=== PATIENT | female | born 1980 | race Caucasian/White ===

== ENCOUNTER 2016-06-23 13:00 | Outpatient (CLI) | payer MEDICAID | END 2016-06-23 13:01 | disposition home or self-care (01) | DX: Z36 Encounter for antenatal screening of mother (principal) ==

== ENCOUNTER 2016-07-07 12:47 | Outpatient (CLI) | payer MEDICAID | END 2016-07-07 12:48 | disposition home or self-care (01) | DX: Z36 Encounter for antenatal screening of mother (principal); O44.02 Complete placenta previa NOS or without hemorrhage, second trimester; Z3A.26 26 weeks gestation of pregnancy ==

== ENCOUNTER 2016-09-01 09:45 | Outpatient (CLI) | payer MEDICAID ==
[2016-09-01 14:15] LABS: BASOPHILS % (AUTO) 0.4 %; EOSINOPHILS # (AUTO) 0.1 10^3/uL (0.0-0.7); EOSINOPHILS % (AUTO) 1.1 %; HCT - HEMATOCRIT 32.1 % (37.0-47.0); LYMPHOCYTES # (AUTO) 3.2 10^3/uL (1.5-3.5); LYMPHOCYTES % (AUTO) 24.3 %; MEAN CORPUSCULAR HEMOGLOBIN 27.4 pg (27.0-31.0); MEAN CORPUSCULAR HGB CONC 34.1 g/dL (32.0-36.0); MEAN CORPUSCULAR VOLUME 80.4 fL (81.0-99.0); MEAN PLATELET VOLUME 11.1 fL (7.9-10.8); MONOCYTES # (AUTO) 0.5 10^3/uL (0.0-1.0); MONOCYTES % (AUTO) 3.5 %; NEUTROPHILS # (AUTO) 9.2 10^3/uL (1.5-6.6); NEUTROPHILS % (AUTO) 70.7 %; RED BLOOD COUNT 3.99 10^6/uL (4.20-5.40); RED CELL DISTRIBUTION WIDTH 14.4 % (12.0-15.0); UNCORRECTED WHITE BLOOD COUNT 13.1 x10^3/uL; WHITE BLOOD COUNT 13.1 x10^3/uL (4.8-10.8)
[2016-09-01 14:56] LABS: ALBUMIN/GLOBULIN RATIO 0.7 (1.0-2.2); BILIRUBIN,TOTAL 0.3 mg/dL (0.2-1.0); CALCIUM 9.1 mg/dL (8.5-10.3); CREATININE 0.5 mg/dL (0.4-1.0); POTASSIUM 3.7 mmol/L (3.5-5.0); TOTAL PROTEIN 6.4 g/dL (6.7-8.2)
== END 2016-09-01 09:46 | disposition home or self-care (01) ==
LOC: LAB.N 09:45
PROVIDERS: ATTEND Nurse Practitioner Gerontology
DX: Z79.899 Other long term (current) drug therapy (principal)
CPT/HCPCS: 36415; 80053; 85025

== ENCOUNTER 2018-05-14 09:07 | Emergency (ER) | payer MEDICAID ==
--- NOTE | 2018-05-14 09:52 | ED Physician Documentation ---
History of Present Illness - Stated complaint Stated Complaint: PANIC ATTACKS - Chief complaint Chief Complaint: MHE - History obtained from History obtained from: Patient, Family - History of Present Illness Timing: How many weeks ago (2) - Additonal information Additional information: 38-year-old female with history of anxiety and panic attacks has developed acute anxiety she believes related to the fact that her daughter is leaving to go to [place] to go to school tomorrow. She has had some trouble with changes previously and develops anxiety related to this she has previously been seen by a counselor and she has not had counseling for more than 2 years. She is on BuSpar and Zoloft and has been on these medications for a number of years. She reports breathing rapidly feeling lightheaded and dizzy and having a sensation that her mouth is dry. Review of Systems Constitutional: denies: Fever Eyes: denies: Decreased vision Ears: denies: Ear pain Nose: denies: Congestion Throat: denies: Sore throat Cardiac: denies: Chest pain / pressure, Palpitations Respiratory: reports: Dyspnea. denies: Cough GI: denies: Abdominal Pain, Nausea, Vomiting : denies: Dysuria, Frequency Skin: denies: Rash Musculoskeletal: denies: Neck pain, Back pain, Extremity pain Neurologic: denies: Generalized weakness, Focal weakness, Numbness Psychiatric: reports: Anxiety PD PAST MEDICAL HISTORY - Past Medical History Cardiovascular: None, Hypertension, High cholesterol Respiratory: None Endocrine/Autoimmune: None GI: None : None HEENT: None Psych: Depression, Anxiety Musculoskeletal: None Derm: None, Psoriasis - Past Surgical History Past Surgical History: Yes General: Other - Present Medications Home Medications: Ambulatory Orders Medication Instructions Recorded Confirmed Buspirone HCl 30 mg PO DAILY 05/27/13 05/14/18 Sertraline HCl [Zoloft] 200 mg PO DAILY 05/27/13 05/14/18 Lorazepam [Ativan] 1 - 2 mg PO RTQ6H PRN #20 tablet 05/14/18 - Allergies Allergies/Adverse Reactions: Allergies Allergy/AdvReac Type Severity Reaction Status Date / Time No Known Drug Allergies Allergy Verified 05/14/18 09:14 - Social History Does the pt smoke?: Yes Smoking Status: Current every day smoker Does the pt drink ETOH?: Yes Does the pt have substance abuse?: No - Immunizations Immunizations are current?: Yes - POLST Patient has POLST: No PD ED PE NORMAL - Vitals Vital signs reviewed: Yes (tachky and hypertensive ) - General General: Alert and oriented X 3, Well developed/nourished, Other (anxious appearing female hyperventilating and teary eyed. ) - HEENT HEENT: Atraumatic, PERRL, EOMI, Pharynx benign, Other (There is mild inflamation along the right umbo) - Neck Neck: Supple, no meningeal sign, No bony TTP - Cardiac Cardiac: No murmur, Other (tachy to 100) - Respiratory Respiratory: No respiratory distress, Clear bilaterally - Abdomen Abdomen: Soft, Non tender - Back Back: No CVA TTP, No spinal TTP - Derm Derm: Normal color, Warm and dry, No rash - Extremities Extremities: No deformity, No edema - Neuro Neuro: Alert and oriented X 3, bank accountant 2-12 intact, No motor deficit, No sensory deficit, Normal speech Eye Opening: Spontaneous Motor: Obeys Commands Verbal: Oriented GCS Score: 15 - Psych Psych: Normal affect, Other (mood is anxious ) Results - Vitals Vitals: Vital Signs - 24 hr 05/14/18 05/14/18 09:09 09:28 Temperature 35.9 C L Heart Rate 122 H 102 H Respiratory 18 Rate Blood Pressure 160/81 H 143/73 H O2 Saturation 98 99 Oxygen O2 Source Room air - EKG (time done) 0922 Rate: Rate (enter#) (102) Rhythm: Sinus tachycardia Ischemia: Normal ST segments Compare to prior EKG: Old EKG unavailable Computer interpretation: Agree with computer Procedures - IVC sono (time) 0945 Bedside IVC sono: IVC measures (cm) (1.67), Euvolemia PD MEDICAL DECISION MAKING - ED course Complexity details: considered differential, d/w patient, d/w family ED course: 38-year-old female with a history of anxiety appears to be anxious today related to current events in her home life and she is administered Ativan orally. We will place her short course of Ativan she does have follow-up with her primary and I have recommended counseling. She did feel that she was dehydrated and we interrogated her inferior vena cava and found her to be euvolemic. I suspect her feeling of dehydration related to her dry mouth is from her rapid breathing but she has not depleted her volume. Departure - Departure Disposition: 01 Home, Self Care Clinical Impression: Acute anxiety Condition: Stable Instructions: ED Panic Attack, ED Stress React Follow-Up: Mirian Giordano ARNP [Primary Care Provider] - Prescriptions: Lorazepam [Ativan] 1 - 2 mg PO RTQ6H PRN #20 tablet PRN Reason: Anxiety
[2018-05-14] MEDS ORDERED: LORazepam 0.5 MG TABLET PO STA (09:57)
[2018-05-14 10:09] VITALS: BP 146/84
== END 2018-05-14 10:09 | disposition home or self-care (01) ==
LOC: ED 09:07
DX: F41.9 Anxiety disorder, unspecified (principal); R00.0 Tachycardia, unspecified; R06.4 Hyperventilation; R68.2 Dry mouth, unspecified; I10 Essential (primary) hypertension; F17.200 Nicotine dependence, unspecified, uncomplicated
CPT/HCPCS: 93005; 99283; A9270

== ENCOUNTER 2018-12-20 08:50 | Outpatient (CLI) | payer MEDICAID ==
[2018-12-20 11:59] LABS: BASOPHILS # (AUTO) 0.1 10^3/uL (0.0-0.1); BASOPHILS % (AUTO) 0.4 %; EOSINOPHILS # (AUTO) 0.4 10^3/uL (0.0-0.7); EOSINOPHILS % (AUTO) 3.5 %; LYMPHOCYTES # (AUTO) 3.4 10^3/uL (1.5-3.5); LYMPHOCYTES % (AUTO) 29.5 %; MEAN CORPUSCULAR HEMOGLOBIN 25.2 pg (27.0-31.0); MEAN CORPUSCULAR HGB CONC 30.2 g/dL (32.0-36.0); MEAN CORPUSCULAR VOLUME 83.4 fL (81.0-99.0); MEAN PLATELET VOLUME 11.9 fL (7.9-10.8); MONOCYTES # (AUTO) 0.5 10^3/uL (0.0-1.0); MONOCYTES % (AUTO) 4.2 %; NEUTROPHILS # (AUTO) 7.2 10^3/uL (1.5-6.6); NEUTROPHILS % (AUTO) 62.2 %; PLT - PLATELET COUNT 236 10^3/uL (130-450); RED BLOOD COUNT 5.55 10^6/uL (4.20-5.40); RED CELL DISTRIBUTION WIDTH 15.6 % (12.0-15.0); WHITE BLOOD COUNT 11.6 x10^3/uL (4.8-10.8)
[2018-12-20 12:11] LABS: ALBUMIN 3.7 g/dL (3.2-5.5); ALBUMIN/GLOBULIN RATIO 1.1 (1.0-2.2); ALKALINE PHOSPHATASE 86 IU/L (42-121); ALT ALANINE AMINOTRANSFERASE 17 IU/L (10-60); AST ASPARTATE AMINOTRANSFERASE 17 IU/L (10-42); BILIRUBIN,TOTAL 0.4 mg/dL (0.2-1.0); BUN - BLOOD UREA NITROGEN 11 mg/dL (6-20); CALCIUM 9.1 mg/dL (8.5-10.3); CARBON DIOXIDE - CO2 27 mmol/L (21-32); CHLORIDE 108 mmol/L (101-111); CHOL/HDL RATIO 9.4 (<4.4); CHOLESTEROL 255 mg/dL; CREATININE 0.7 mg/dL (0.4-1.0); GFR - MDRD 93 (>89); GLUCOSE 108 mg/dL (70-100); HDL CHOLESTEROL 27 mg/dL; LDL CHOLESTEROL,CALCULATED 194 mg/dL; LDL/HDL RATIO 7.2 (<4.4); SODIUM 143 mmol/L (135-145); TOTAL PROTEIN 7.2 g/dL (6.7-8.2); VLDL CHOLESTEROL 34 mg/dL
== END 2018-12-20 23:59 | disposition home or self-care (01) ==
LOC: LAB.N 08:50
PROVIDERS: ATTEND Family Medicine
DX: I10 Essential (primary) hypertension (principal); F41.9 Anxiety disorder, unspecified; Z83.49 Family history of other endocrine, nutritional and metabolic diseases
CPT/HCPCS: 36415; 80050; 80061; 83721

== ENCOUNTER 2019-01-11 13:33 | Emergency (ER) | payer SELFPAY ==
[2019-01-11 13:58] LABS: MUDS CUTOFF CONCENTRATIONS CUTOFF CONC BELOW:
[2019-01-11 14:00] LABS: BILIRUBIN,URINE NEGATIVE (NEGATIVE); GLUCOSE, URINE (UA) NEGATIVE (NEGATIVE); KETONES,URINE (UA) NEGATIVE (NEGATIVE); LEUKOCYTE ESTERASE, URINE NEGATIVE (NEGATIVE); NITRITE,URINE NEGATIVE (NEGATIVE); OCCULT BLOOD,URINE NEGATIVE (NEGATIVE); PH,URINE 5.5 PH (5.0-7.5); PROTEIN,URINE NEGATIVE (NEGATIVE); UROBILINOGEN,URINE 0.2 (NORMAL) E.U./dL (NORMAL)
[2019-01-11 14:01] LABS: CLARITY,URINE CLEAR (CLEAR); HCG UR QUAL NEGATIVE
[2019-01-11 14:13] LABS: AMPHETAMINE SCREEN,URINE NEGATIVE (NEGATIVE); BENZODIAZEPINES SCREEN, URINE NEGATIVE (NEGATIVE); COCAINE SCREEN URINE NEGATIVE (NEGATIVE); METHADONE SCREEN, URINE NEGATIVE (NEGATIVE); METHAMPHETAMINES SCREEN, URINE NEGATIVE (NEGATIVE); OPIATE SCREEN, URINE NEGATIVE (NEGATIVE); OXYCODONE SCREEN, URINE NEGATIVE (NEGATIVE); PROPOXYPHENE SCREEN, URINE NEGATIVE (NEGATIVE); TRICYCLIC ANTIDEPRESSANT,URINE NEGATIVE (NEGATIVE)
[2019-01-11 14:29] LABS: BASOPHILS # (AUTO) 0.1 10^3/uL (0.0-0.1); BASOPHILS % (AUTO) 0.4 %; EOSINOPHILS # (AUTO) 0.1 10^3/uL (0.0-0.7); EOSINOPHILS % (AUTO) 0.4 %; HGB - HEMOGLOBIN 13.7 g/dL (12.0-16.0); LYMPHOCYTES # (AUTO) 2.9 10^3/uL (1.5-3.5); LYMPHOCYTES % (AUTO) 21.5 %; MEAN CORPUSCULAR HEMOGLOBIN 25.8 pg (27.0-31.0); MEAN CORPUSCULAR HGB CONC 31.7 g/dL (32.0-36.0); MEAN CORPUSCULAR VOLUME 81.2 fL (81.0-99.0); MEAN PLATELET VOLUME 11.5 fL (7.9-10.8); MONOCYTES # (AUTO) 0.7 10^3/uL (0.0-1.0); MONOCYTES % (AUTO) 5.2 %; NEUTROPHILS # (AUTO) 9.7 10^3/uL (1.5-6.6); PLT - PLATELET COUNT 224 10^3/uL (130-450); RED BLOOD COUNT 5.32 10^6/uL (4.20-5.40); RED CELL DISTRIBUTION WIDTH 14.8 % (12.0-15.0); WHITE BLOOD COUNT 13.5 x10^3/uL (4.8-10.8)
[2019-01-11 14:41] LABS: ALBUMIN 3.5 g/dL (3.2-5.5); BILIRUBIN,TOTAL 0.5 mg/dL (0.2-1.0); CREATININE 0.7 mg/dL (0.4-1.0); TOTAL PROTEIN 7.1 g/dL (6.7-8.2)
--- NOTE | 2019-01-11 14:52 | ED Physician Documentation ---
History of Present Illness - Stated complaint Stated Complaint: DIZZINES/SHAKY - Chief complaint Chief Complaint: Cardiac - History obtained from History obtained from: Patient - History of Present Illness Timing: How many weeks ago (8) - Additonal information Additional information: 38-year-old female with a history of anxiety attacks has over the past 2 months had episodes of anxiety in the morning on awakening with some nausea and dry heaves as well as feeling warm. She has been into see Dr. Clayton and was prescribed some hydroxyzine which she did not take because she thought it might be too sedating. Review of Systems Constitutional: denies: Fever Eyes: denies: Decreased vision Ears: denies: Ear pain Nose: denies: Congestion Throat: denies: Sore throat Cardiac: reports: Palpitations. denies: Chest pain / pressure, Pedal edema, Calf pain Respiratory: reports: Dyspnea. denies: Cough, Wheezing GI: reports: Nausea, Vomiting. denies: Abdominal Pain : denies: Dysuria, Frequency PD PAST MEDICAL HISTORY - Past Medical History Cardiovascular: None, Hypertension, High cholesterol Respiratory: None Endocrine/Autoimmune: None GI: None : None HEENT: None Psych: Depression, Anxiety Musculoskeletal: None Derm: None, Psoriasis - Past Surgical History Past Surgical History: Yes General: Other - Present Medications Home Medications: Ambulatory Orders Medication Instructions Recorded Confirmed Buspirone HCl 30 mg PO DAILY 05/27/13 05/14/18 Sertraline HCl [Zoloft] 200 mg PO DAILY 05/27/13 05/14/18 Lorazepam [Ativan] 1 - 2 mg PO RTQ6H PRN #20 tablet 05/14/18 - Allergies Allergies/Adverse Reactions: Allergies Allergy/AdvReac Type Severity Reaction Status Date / Time No Known Drug Allergies Allergy Verified 05/14/18 09:14 - Social History Does the pt smoke?: Yes Smoking Status: Current every day smoker Does the pt drink ETOH?: Yes Does the pt have substance abuse?: No - Immunizations Immunizations are current?: Yes - POLST Patient has POLST: No PD ED PE NORMAL - Vitals Vital signs reviewed: Yes (tachy and hypertensive ) - General General: Alert and oriented X 3, Well developed/nourished, Other (anxious appearing ) - HEENT HEENT: Atraumatic, PERRL, EOMI, Ears normal, Moist mucous membranes, Pharynx benign, Dentition benign - Neck Neck: Supple, no meningeal sign, No bony TTP - Cardiac Cardiac: RRR, No murmur - Respiratory Respiratory: No respiratory distress, Clear bilaterally - Abdomen Abdomen: Normal bowel sounds, Soft, Non tender, Non distended, No organomegaly - Back Back: No CVA TTP, No spinal TTP - Derm Derm: Normal color, Warm and dry, No rash - Extremities Extremities: No deformity, No edema - Neuro Neuro: Alert and oriented X 3, public service representative 2-12 intact, No motor deficit, No sensory deficit, Normal speech Eye Opening: Spontaneous Motor: Obeys Commands Verbal: Oriented GCS Score: 15 - Psych Psych: Normal affect, Other (mood is anxious ) Results - Vitals Vitals: Vital Signs - 24 hr 01/11/19 01/11/19 13:38 16:40 Temperature 36 C L Heart Rate 110 H 93 Respiratory 16 18 Rate Blood Pressure 133/74 H 157/80 H O2 Saturation 98 99 Oxygen O2 Source Room air - EKG (time done) 1355 Rate: Rate (enter#) (96) Rhythm: NSR Compare to prior EKG: Changed from prior EKG (SPT 1-219 rate has decreased. ) Computer interpretation: Agree with computer - Labs Labs: Laboratory Tests 01/11/19 01/11/19 01/11/19 13:43 13:48 13:48 WBC RBC Hgb Hct MCV MCH MCHC RDW Plt Count MPV Neut # (Auto) Lymph # (Auto) C[place]oula # (Auto) Eos # (Auto) Baso # (Auto) Absolute Nucleated RBC Nucleated RBC % Sodium Potassium Chloride Carbon Dioxide Anion Gap BUN Creatinine Estimated GFR (MDRD) Glucose POC Whole Bld Glucose 164 H Calcium Total Bilirubin AST ALT Alkaline Phosphatase Total Protein Albumin Globulin Albumin/Globulin Ratio Lipase Urine Color YELLOW Urine Clarity CLEAR Urine pH 5.5 Ur Specific [place] >=1.030 H Urine Protein NEGATIVE Urine Glucose (UA) NEGATIVE Urine Ketones NEGATIVE Urine Occult Blood NEGATIVE Urine Nitrite NEGATIVE Urine Bilirubin NEGATIVE Urine Urobilinogen 0.2 (NORMAL) Ur Leukocyte Esterase NEGATIVE Ur Microscopic Review NOT INDICATED Urine Culture Comments NOT INDICATED Urine HCG, Qual NEGATIVE Urine Opiates Screen NEGATIVE Ur Oxycodone Screen NEGATIVE Urine Methadone Screen NEGATIVE Ur Propoxyphene Screen NEGATIVE Ur Barbiturates Screen NEGATIVE Ur Tricyclics Screen NEGATIVE Ur Phencyclidine Scrn NEGATIVE Ur Amphetamine Screen NEGATIVE U Methamphetamines Scrn NEGATIVE U Benzodiazepines Scrn NEGATIVE Urine Cocaine Screen NEGATIVE U Cannabinoids Screen NEGATIVE 01/11/19 01/11/19 14:26 14:26 WBC 13.5 H RBC 5.32 Hgb 13.7 Hct 43.2 MCV 81.2 MCH 25.8 L MCHC 31.7 L RDW 14.8 Plt Count 224 MPV 11.5 H Neut # (Auto) 9.7 H Lymph # (Auto) 2.9 [place] # (Auto) 0.7 Eos # (Auto) 0.1 Baso # (Auto) 0.1 Absolute Nucleated RBC 0.00 Nucleated RBC % 0.0 Sodium 139 Potassium 3.5 Chloride 106 Carbon Dioxide 24 Anion Gap 9.0 BUN 11 Creatinine 0.7 Estimated GFR (MDRD) 93 Glucose 128 H POC Whole Bld Glucose Calcium 9.0 Total Bilirubin 0.5 AST 15 ALT 16 Alkaline Phosphatase 91 Total Protein 7.1 Albumin 3.5 Globulin 3.6 Albumin/Globulin Ratio 1.0 Lipase 27 Urine Color Urine Clarity Urine pH Ur Specific [place] Urine Protein Urine Glucose (UA) Urine Ketones Urine Occult Blood Urine Nitrite Urine Bilirubin Urine Urobilinogen Ur Leukocyte Esterase Ur Microscopic Review Urine Culture Comments Urine HCG, Qual Urine Opiates Screen Ur Oxycodone Screen Urine Methadone Screen Ur Propoxyphene Screen Ur Barbiturates Screen Ur Tricyclics Screen Ur Phencyclidine Scrn Ur Amphetamine Screen U Methamphetamines Scrn U Benzodiazepines Scrn Urine Cocaine Screen U Cannabinoids Screen PD MEDICAL DECISION MAKING - ED course Complexity details: reviewed old records, reviewed results, re-evaluated patient, considered differential, d/w patient ED course: 38-year-old female with a history of anxiety and panic attacks has been having more symptoms recently and she is feeling some anxiety over the fact that she is having symptoms in the morning. She did take her Ativan one day this seemed to help immediately. She has been prescribed hydroxyzine and she is reluctant to take it as she is concerned that will make her too sleepy. We discussed the nature of the hydroxyzine and its utility and she will give this a try. The patient has lost contact with her prior counselor and when she try to get back with a counselor she found that she was not able to and she was having a hard time finding a counselor. The social security assessor did come in to talk with the patient and provided her with a list of counselors. Departure - Departure Disposition: 01 Home, Self Care Clinical Impression: Acute anxiety Condition: Stable Instructions: ED Stress React, ED Panic Attack Follow-Up: SANDRA CLAYTON MD [Primary Care Provider] - Discharge Date/Time: 01/11/19 16:41
[2019-01-11 16:42] VITALS: BP 157/80
== END 2019-01-11 16:41 | disposition home or self-care (01) ==
LOC: ED 13:33
DX: F41.9 Anxiety disorder, unspecified (principal); R00.2 Palpitations; R11.2 Nausea with vomiting, unspecified; R06.00 Dyspnea, unspecified; I10 Essential (primary) hypertension; F17.200 Nicotine dependence, unspecified, uncomplicated
CPT/HCPCS: 36415; 80053; 80306; 81001; 81003; 81025; 83690; 85025; 87086; 93005; 99283

== ENCOUNTER 2020-10-21 08:00 | Outpatient (CLI) | payer MEDICAID ==
[2020-10-21 18:11] LABS: ALBUMIN 3.5 g/dL (3.2-5.5); ALKALINE PHOSPHATASE 77 IU/L (42-121); ALT ALANINE AMINOTRANSFERASE 19 IU/L (10-60); AST ASPARTATE AMINOTRANSFERASE 15 IU/L (10-42); BILIRUBIN,TOTAL 0.8 mg/dL (0.2-1.0); BUN - BLOOD UREA NITROGEN 9 mg/dL (6-20); CALCIUM 8.7 mg/dL (8.5-10.3); CARBON DIOXIDE - CO2 27 mmol/L (21-32); CHLORIDE 104 mmol/L (101-111); CHOLESTEROL 279 mg/dL; CREATININE 0.7 mg/dL (0.4-1.0); GFR - MDRD 92 (>89); GLUCOSE 85 mg/dL (70-100); HDL CHOLESTEROL 28 mg/dL; LDL CHOLESTEROL,CALCULATED 217 mg/dL; LDL/HDL RATIO 7.8 (<4.4); POTASSIUM 3.9 mmol/L (3.5-5.0); SODIUM 138 mmol/L (135-145); TRIGLYCERIDES 170 mg/dL; VLDL CHOLESTEROL 34 mg/dL
[2020-10-21 18:16] LABS: BILIRUBIN,URINE NEGATIVE (NEGATIVE); GLUCOSE, URINE (UA) NEGATIVE (NEGATIVE); KETONES,URINE (UA) NEGATIVE (NEGATIVE); LEUKOCYTE ESTERASE, URINE NEGATIVE (NEGATIVE); NITRITE,URINE NEGATIVE (NEGATIVE); OCCULT BLOOD,URINE NEGATIVE (NEGATIVE); PH,URINE 5.5 PH (5.0-7.5); PROTEIN,URINE NEGATIVE (NEGATIVE); UROBILINOGEN,URINE 0.2 (NORMAL) E.U./dL (NORMAL)
[2020-10-21 18:20] LABS: CLARITY,URINE CLOUDY (CLEAR)
[2020-10-21 18:24] LABS: THYROID STIMULATING HORMONE 1.53 uIU/mL (0.34-5.60)
[2020-10-21 18:26] LABS: BASOPHILS # (AUTO) 0.1 10^3/uL (0.0-0.1); BASOPHILS % (AUTO) 0.6 %; EOSINOPHILS # (AUTO) 0.1 10^3/uL (0.0-0.7); EOSINOPHILS % (AUTO) 1.1 %; FREE T4 (FREE THYROXINE) 0.93 ng/dL (0.58-1.64); HCT - HEMATOCRIT 46.3 % (37.0-47.0); HGB - HEMOGLOBIN 14.2 g/dL (12.0-16.0); LYMPHOCYTES # (AUTO) 4.5 10^3/uL (1.5-3.5); LYMPHOCYTES % (AUTO) 38.9 %; MEAN CORPUSCULAR HGB CONC 30.7 g/dL (32.0-36.0); MEAN PLATELET VOLUME 11.5 fL (7.9-10.8); MONOCYTES # (AUTO) 0.8 10^3/uL (0.0-1.0); MONOCYTES % (AUTO) 7.1 %; NEUTROPHILS # (AUTO) 6.1 10^3/uL (1.5-6.6); PLT - PLATELET COUNT 227 10^3/uL (130-450); RED BLOOD COUNT 5.26 10^6/uL (4.20-5.40); WHITE BLOOD COUNT 11.7 x10^3/uL (4.8-10.8)
[2020-10-21 18:50] LABS: FOLLICLE STIMULATING HORMONE 4.09 mIU/mL
[2020-10-21 18:51] LABS: LUTEINIZING HORMONE 2.74 mIU/mL
[2020-10-21 18:59] LABS: AMORPHOUS SEDIMENT,UR Marked /LPF; BACTERIA,URINE Moderate /HPF (None Seen); RBC,URINE None Seen /HPF (0-5); SQUAMOUS EPITHELIAL CELL,UR MOD Squamous (<= Few); WBC,URINE 0-3 /HPF (0-5)
[2020-10-21 20:29] LABS: ESTIMATED AVERAGE GLUCOSE 123 mg/dL (70-100); HEMOGLOBIN A1c% 5.9 % (4.27-6.07)
== END 2020-10-21 23:59 | disposition home or self-care (01) ==
LOC: LAB.WCP 08:00
PROVIDERS: ATTEND Nurse Practitioner
DX: I10 Essential (primary) hypertension (principal); Z13.220 Encounter for screening for lipoid disorders; N92.4 Excessive bleeding in the premenopausal period; Z13.1 Encounter for screening for diabetes mellitus; Z83.49 Family history of other endocrine, nutritional and metabolic diseases
CPT/HCPCS: 36415; 80053; 80061; 81001; 83001; 83002; 83036; 83721; 84439; 84443; 85025; 87086

== ENCOUNTER 2020-12-11 13:33 | Emergency (ER) | payer MEDICAID ==
[2020-12-11 13:41] VITALS: BP 165/91
== END 2020-12-11 15:08 | disposition left against medical advice (07) ==
LOC: ED 13:33
DX: Z53.21 Procedure and treatment not carried out due to patient leaving prior to being seen by health care provider (principal)

== ENCOUNTER 2020-12-17 13:57 | Emergency (ER) | payer MEDICAID ==
[2020-12-17 14:18] VITALS: BP 138/92
--- NOTE | 2020-12-17 14:49 | ED Physician Documentation ---
History of Present Illness - Stated complaint Stated Complaint: TAIL BONE PX - Chief complaint Chief Complaint: General - History obtained from History obtained from: Patient - Additonal information Additional information: For 2 weeks this 40-year-old woman with high BMI has experienced tailbone and rectal pain. She has chronic diarrhea. No constipation. She has been seen by 2 physicians without a clear diagnosis. She is using a hemorrhoid cream which helps mildly. Review of Systems Constitutional: reports: Reviewed and negative Eyes: reports: Reviewed and negative Ears: reports: Reviewed and negative Nose: reports: Reviewed and negative Throat: reports: Reviewed and negative Cardiac: reports: Reviewed and negative Respiratory: reports: Reviewed and negative PD PAST MEDICAL HISTORY - Past Medical History Cardiovascular: None, Hypertension, High cholesterol Respiratory: None Endocrine/Autoimmune: None GI: None : None HEENT: None Psych: Depression, Anxiety Musculoskeletal: None Derm: None, Psoriasis - Past Surgical History Past Surgical History: Yes General: Other - Present Medications Home Medications: Ambulatory Orders Medication Instructions Recorded Confirmed Buspirone HCl 30 mg PO DAILY 05/27/13 12/17/20 Sertraline HCl [Zoloft] 200 mg PO DAILY 05/27/13 12/17/20 Lorazepam [Ativan] 1 - 2 mg PO RTQ6H PRN #20 tablet 05/14/18 12/17/20 HYDROcod/ACETAM 5/325 [[place] 5/325] 1 - 2 tab PO Q6H PRN #15 tablet 12/17/20 predniSONE [Deltasone] 20 mg PO [id number] #21 tab 12/17/20 - Allergies Allergies/Adverse Reactions: Allergies Allergy/AdvReac Type Severity Reaction Status Date / Time No Known Drug Allergies Allergy Verified 12/17/20 14:18 - Social History Does the pt smoke?: Yes Smoking Status: Current every day smoker Does the pt drink ETOH?: Yes Does the pt have substance abuse?: No - Immunizations Immunizations are current?: Yes - POLST Patient has POLST: No PD ED PE NORMAL - Vitals Vital signs reviewed: Yes - General General: Alert and oriented X 3, No acute distress - HEENT HEENT: PERRL, EOMI - Rectal Rectal: Other (Exam done with Dahiana Louis RN present and chaperoning, small nonthrombosed hemorrhoids with diffuse rectal tenderness, there is some tenderness in the top of the gluteal cleft without obvious pilonidal abscess or skin changes.) - Back Back: No CVA TTP - Derm Derm: Normal color, Warm and dry - Neuro Neuro: Alert and oriented X 3, Normal speech Results - Vitals Vitals: Vital Signs - 24 hr 12/17/20 14:13 Temperature 36.6 C Heart Rate 88 Respiratory 18 Rate Blood Pressure 138/92 H O2 Saturation 99 Oxygen O2 Source Room air - Labs Labs: Laboratory Tests 12/17/20 12/17/20 15:16 15:16 WBC 12.1 H RBC 5.35 Hgb 14.8 Hct 46.6 MCV 87.1 MCH 27.7 MCHC 31.8 L RDW 13.6 Plt Count 222 MPV 11.5 H Neut # (Auto) 7.3 H Lymph # (Auto) 3.9 H [place] # (Auto) 0.6 Eos # (Auto) 0.1 Baso # (Auto) 0.1 Absolute Nucleated RBC 0.00 Nucleated RBC % 0.0 Sodium 138 Potassium 3.8 Chloride 104 Carbon Dioxide 25 Anion Gap 9.0 BUN 12 Creatinine 0.8 Estimated GFR (MDRD) 79 L Glucose 97 Calcium 9.0 PD MEDICAL DECISION MAKING - ED course ED course: 40-year-old woman presents with 2 weeks of low back pain can over the sacroiliac joints. A concern for pilonidal cyst but really none feel it felt on exam. She has some small nonthrombosed hemorrhoids but has rectal tenderness to. No obvious sign clinically of perirectal abscess but both perirectal and pilonidal cyst are on the differential but examination is limited due to BMI of 45. As such CT was done showing chronic deformity of the tip of the coccyx and bilateral hip and sacroiliac arthritis. Given the location of her pain I think she probably has sacroiliitis which is symptomatic. Departure - Departure Disposition: 01 Home, Self Care Clinical Impression: Sacroiliitis Back pain Qualifiers: Back pain location: low back pain Chronicity: acute Back pain laterality: bilateral Sciatica presence: without sciatica Qualified Code(s): M54.5 - Low back pain Condition: Good Record reviewed to determine appropriate education?: Yes Instructions: ED Neck Back Pain General Prescriptions: predniSONE [Deltasone] 20 mg PO [id number] #21 tab HYDROcod/ACETAM 5/325 [[place] 5/325] 1 - 2 tab PO Q6H PRN #15 tablet PRN Reason: Pain Comments: Prescription was sent electronically to [facility] in [place]. . As discussed today we found that you probably have sacroiliitis based on the CAT scan. You need to follow-up with your doctor for this and consider HLA-B 27 testing. I suspect this is the bulk of your pain but you can continue to treat the hemorrhoids with the cream you are using. Call your doctor to arrange a follow-up appointment, make the next available appointment. In the interim, return anytime if worse or if new symptoms develop. I am prescribing a short course of narcotic pain medication for you. These are potentially dangerous and addictive medications that should be used carefully. These medications may constipate you. Take an [id number] stool softener (docusate) twice daily with plenty of water while taking these medications. If you go 24 hours without a bowel movement, take uydz-[id number] miralax, per package instructions. Do not drink or drive while taking these medications. If you received narcotic or sedating medications while in the emergency department, do not drive for 24 hours. Store this medication in a safe, secure place and out of reach of children. It is a violation of federal law to give or sell this medication to another person or to use in a manner other than prescribed. The ED will not refill narcotic prescriptions, including prescriptions lost or stolen. To dispose of unwanted medications: 1. [facility] at [address] in [place] has a medication drop box. They accept prescription medications (in pill form) Sunday through Sunday 9:00 a.m. to 5:00 p.m. 2. The [facility] [employer] accepts prescription medications (in pill form only) for disposal year round. Call for more information. 3. Contact the [facility] for the next [facility] sponsored prescription drug collection event. , [phone], or [phone]; Note that many narcotic pain relievers also contain Tylenol/acetaminophen. Please ensure that your total dose of acetaminophen from all sources does not exceed 3 g (3000 mg) per day.
[2020-12-17 15:30] LABS: CREATININE 0.8 mg/dL (0.4-1.0); POTASSIUM 3.8 mmol/L (3.5-5.0)
[2020-12-17 15:32] LABS: BASOPHILS # (AUTO) 0.1 10^3/uL (0.0-0.1); BASOPHILS % (AUTO) 0.6 %; EOSINOPHILS # (AUTO) 0.1 10^3/uL (0.0-0.7); EOSINOPHILS % (AUTO) 0.9 %; HCT - HEMATOCRIT 46.6 % (37.0-47.0); HGB - HEMOGLOBIN 14.8 g/dL (12.0-16.0); LYMPHOCYTES # (AUTO) 3.9 10^3/uL (1.5-3.5); LYMPHOCYTES % (AUTO) 32.4 %; MEAN CORPUSCULAR HEMOGLOBIN 27.7 pg (27.0-31.0); MEAN CORPUSCULAR HGB CONC 31.8 g/dL (32.0-36.0); MEAN CORPUSCULAR VOLUME 87.1 fL (81.0-99.0); MEAN PLATELET VOLUME 11.5 fL (7.9-10.8); MONOCYTES # (AUTO) 0.6 10^3/uL (0.0-1.0); NEUTROPHILS # (AUTO) 7.3 10^3/uL (1.5-6.6); NEUTROPHILS % (AUTO) 60.9 %; PLT - PLATELET COUNT 222 10^3/uL (130-450); RED BLOOD COUNT 5.35 10^6/uL (4.20-5.40); RED CELL DISTRIBUTION WIDTH 13.6 % (12.0-15.0); WHITE BLOOD COUNT 12.1 x10^3/uL (4.8-10.8)
[2020-12-17] MEDS ORDERED: IOPAMIDOL-300 100 ML VIAL ONE (16:18)
--- NOTE | 2020-12-17 17:18 | CT Report ---
PROCEDURE: PELVIS W INDICATIONS: IV only, tailbone pain, ?deep pilonidal vs rectal CONTRAST: IV CONTRAST: Isovue 300 ml: 100 PO CONTRAST: *NO PO CONTRAST TECHNIQUE: After the administration of IV contrast, 5 mm thick sections acquired from the iliac crests to the sy mphysis. 5 mm thick coronal and sagittal reformats were acquired. For radiation dose reduction, the following was used: automated exposure control, adjustment of mA and/or kV according to patient meetz e. COMPARISON: CT of abdomen and pelvis dated 05/27/2013. FINDINGS: Image quality: Excellent. Peritoneum and bowel: There is no bowel obstruction. No abnormal bowel wall thickening or mesenteric fat stranding. No free fluid or air. Genitourinary: Bladder wall thickness is normal. Nodes and vessels: No iliac, pelvic, or inguinal adenopathy. Iliac vessels demonstrate normal size and enhancement. Bones: No suspicious bony lesion. Osteoarthritic changes are noted in bilateral sacroiliac joints and hip joints. Chronic-appearing mild deformity involving tip of coccyx is seen new since 2013 study. N o adjacent soft tissue mass or fluid collection. No pilonidal cyst is seen. Miscellaneous: Uterus and bilateral ovaries show no gross abnormality. Small bilateral inguinal herni as are seen containing fat only. Small umbilical hernia is seen containing fat only. IMPRESSION: 1. Chronic-appearing deformity involving tip of the coccyx mucinosis 2013 study. No acute sacral or c occygeal fracture. No pelvic fracture or dislocation. 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 No suspicious bony lesion. 2. No gross perirectal soft tissue abnormality. No pilonidal cyst formation. No soft tissue mass or f luid collection. No pelvic free fluid or free air. Reviewed by: Rafal Brennan MD on 12/17/2020 5:17 PM PDT Approved by: Rafal Brennan MD on 12/17/2020 5:17 PM PDT Station ID: [id number]
[2020-12-17] MEDS ORDERED: predniSONE 20 MG TABLET PO STA (17:33)
[2020-12-17] MEDS ORDERED: IOPAMIDOL-300 100 ML VIAL IVP ONE (17:39)
== END 2020-12-17 17:54 | disposition home or self-care (01) ==
LOC: ED 13:57
DX: M46.1 Sacroiliitis, not elsewhere classified (principal); K64.9 Unspecified hemorrhoids; K62.89 Other specified diseases of anus and rectum; F17.200 Nicotine dependence, unspecified, uncomplicated; Z68.42 Body mass index [BMI] 45.0-49.9, adult
CPT/HCPCS: 36415; 72193; 80048; 85025; 99283; 99284; J7512; Q9967

== ENCOUNTER 2021-03-26 12:27 | Emergency (ER) | payer MEDICAID ==
--- NOTE | 2021-03-26 13:08 | ED Physician Documentation ---
History of Present Illness - Stated complaint Stated Complaint: DISORIENTED/SHAKY - Chief complaint Chief Complaint: Neuro - History obtained from History obtained from: Patient - History of Present Illness Timing: Today Pain level max: 0 Pain level now: 0 - Additonal information Additional information: Patient is a 41-year-old female who presents to the emergency department stating that she feels anxious and shaky. She states that she was changed from citalopram to escitalopram. Her dosage went from 30 mg to 20 mg. She states that she has had decreased appetite and trouble sleeping. Review of Systems Constitutional: denies: Fever, Chills GI: denies: Vomiting, Diarrhea Skin: denies: Rash Musculoskeletal: denies: Neck pain, Back pain Neurologic: denies: Headache PD PAST MEDICAL HISTORY - Past Medical History Cardiovascular: None, Hypertension, High cholesterol Respiratory: None Endocrine/Autoimmune: None GI: None : None HEENT: None Psych: Depression, Anxiety Musculoskeletal: None Derm: None, Psoriasis - Past Surgical History Past Surgical History: Yes General: Other - Present Medications Home Medications: Ambulatory Orders Medication Instructions Recorded Confirmed Buspirone HCl 30 mg PO DAILY 05/27/13 03/26/21 Escitalopram [Lexapro] 10 mg PO DAILY #30 tablet 03/26/21 Escitalopram [Lexapro] 20 mg PO DAILY 03/26/21 03/26/21 Propranolol [Inderal] 10 mg PO DAILY 03/26/21 03/26/21 - Allergies Allergies/Adverse Reactions: Allergies Allergy/AdvReac Type Severity Reaction Status Date / Time No Known Drug Allergies Allergy Verified 12/17/20 14:18 - Social History Does the pt smoke?: Yes Smoking Status: Current every day smoker Does the pt drink ETOH?: Yes Does the pt have substance abuse?: No - Immunizations Immunizations are current?: Yes - POLST Patient has POLST: No PD ED PE NORMAL - Vitals Vital signs reviewed: Yes - General General: Alert and oriented X 3, No acute distress - HEENT HEENT: Moist mucous membranes - Neck Neck: Supple, no meningeal sign - Cardiac Cardiac: RRR, Strong equal pulses - Respiratory Respiratory: No respiratory distress, Clear bilaterally - Abdomen Abdomen: Soft, Non tender, Non distended - Derm Derm: Warm and dry - Neuro Neuro: Alert and oriented X 3 - Psych Psych: Normal mood, Normal affect Results - Vitals Vitals: Vital Signs - 24 hr 03/26/21 12:35 Temperature 36.6 C Heart Rate 90 Respiratory 15 Rate Blood Pressure 148/93 H O2 Saturation 98 Oxygen O2 Source Room air PD MEDICAL DECISION MAKING - ED course Complexity details: reviewed results, re-evaluated patient, considered differential, d/w patient ED course: 41-year-old female with what appears to be side effects when switching from Celexa to Lexapro. Her 30 mg Celexa dose would be equivalent to a 15 mg Lexapro dose. We will try decreasing her Lexapro to 10 mg and see if this improves her symptoms. Social work was consulted and the patient was spoken with at length regarding her anxiety and techniques for handling anxiety at home. Patient is comfortable going home at this time and will return if she worsens. This document was made in part using voice recognition software. While efforts are made to proofread this document, sound alike and grammatical errors may occur. Patient denies suicidal or homicidal ideation Departure - Departure Disposition: 01 Home, Self Care Clinical Impression: Acute anxiety Condition: Good Instructions: ED Panic Attack Follow-Up: Shellie Crouch ARNP [Primary Care Provider] - Within 1 week Prescriptions: Escitalopram [Lexapro] 10 mg PO DAILY #30 tablet Comments: Your prescription was sent to [facility] in [place]. Please follow-up with preethi romero doctor for further care. It is also recommended that you see a psychiatrist to help with medication management.
[2021-03-26 14:46] VITALS: BP 147/89
== END 2021-03-26 14:46 | disposition home or self-care (01) ==
LOC: ED 12:27
DX: F41.9 Anxiety disorder, unspecified (principal); I10 Essential (primary) hypertension; F17.200 Nicotine dependence, unspecified, uncomplicated
CPT/HCPCS: 99283

== ENCOUNTER 2021-04-02 17:08 | Emergency (ER) | payer MEDICAID ==
[2021-04-02 17:37] LABS: BASOPHILS # (AUTO) 0.1 10^3/uL (0.0-0.1); BASOPHILS % (AUTO) 0.6 %; EOSINOPHILS # (AUTO) 0.2 10^3/uL (0.0-0.7); EOSINOPHILS % (AUTO) 1.5 %; HCT - HEMATOCRIT 45.8 % (37.0-47.0); HGB - HEMOGLOBIN 15.1 g/dL (12.0-16.0); LYMPHOCYTES # (AUTO) 4.9 10^3/uL (1.5-3.5); LYMPHOCYTES % (AUTO) 37.5 %; MEAN PLATELET VOLUME 11.2 fL (7.9-10.8); MONOCYTES # (AUTO) 0.7 10^3/uL (0.0-1.0); MONOCYTES % (AUTO) 5.4 %; NEUTROPHILS # (AUTO) 7.1 10^3/uL (1.5-6.6); NEUTROPHILS % (AUTO) 54.7 %; PLT - PLATELET COUNT 219 10^3/uL (130-450); RED BLOOD COUNT 5.39 10^6/uL (4.20-5.40); RED CELL DISTRIBUTION WIDTH 13.7 % (12.0-15.0); WHITE BLOOD COUNT 13.1 x10^3/uL (4.8-10.8)
[2021-04-02] MEDS ORDERED: ONDANSETRON 4 MG/2 ML VIAL IVP STA (17:37)
[2021-04-02] MEDS ORDERED: SODIUM CHLORIDE 0.9% 1,000 ML IV STA (17:37)
--- NOTE | 2021-04-02 17:42 | ED Physician Documentation ---
History of Present Illness - Stated complaint Stated Complaint: WEAK/SHAKY/VOM - Chief complaint Chief Complaint: General - Additonal information Additional information: 41-year-old female presents emergency department for evaluation of 1 week uncontrolled nausea and vomiting. She endorses anorexia. She states anytime she drinks simple liquids she retches forcefully often vomiting up simply bile. She was seen about 1 week ago and felt that she was having anxiety and panic attacks. She had recently had a change in dose and medications from citalopram to Lexapro. She did see her primary care doctor in follow-up but there was no plan for further treatment of this. Since then she has felt progressively weak. She is denying any focal abdominal pain but states that for much of the last week she has really had very little oral intake. Denies any history of diabetes no cannabis use. Meds: Lexapro, BuSpar, propanolol psh: hernia repair Review of Systems Constitutional: denies: Fever, Chills Eyes: reports: Reviewed and negative Ears: reports: Reviewed and negative Nose: reports: Reviewed and negative Throat: reports: Dental pain / toothache Cardiac: reports: Reviewed and negative Respiratory: reports: Reviewed and negative GI: reports: Nausea, Vomiting, Diarrhea. denies: Abdominal Pain : denies: Dysuria, Frequency, Hesitancy Skin: denies: Rash, Lesions Musculoskeletal: denies: Neck pain, Back pain, Extremity pain, Joint pain PD PAST MEDICAL HISTORY - Past Medical History Cardiovascular: Hypertension, High cholesterol Respiratory: None Neuro: None Endocrine/Autoimmune: None GI: None SERVICE DOG TRAINER: None : None HEENT: None Psych: Depression, Anxiety, Panic attacks Musculoskeletal: Osteoarthritis Derm: Psoriasis - Past Surgical History Past Surgical History: Yes General: Other /SERVICE DOG TRAINER: section - Present Medications Home Medications: Ambulatory Orders Medication Instructions Recorded Confirmed Buspirone HCl 30 mg PO DAILY 05/27/13 04/02/21 Escitalopram [Lexapro] 10 mg PO DAILY #30 tablet 03/26/21 04/02/21 Propranolol [Inderal] 10 mg PO DAILY 03/26/21 04/02/21 Ondansetron Odt [Zofran] 4 mg TL Q6H PRN #10 tablet 04/02/21 - Allergies Allergies/Adverse Reactions: Allergies Allergy/AdvReac Type Severity Reaction Status Date / Time No Known Drug Allergies Allergy Verified 04/02/21 17:11 - Social History Does the pt smoke?: Yes Smoking Status: Current every day smoker Does the pt drink ETOH?: Yes Does the pt have substance abuse?: No - Immunizations Immunizations are current?: Yes - POLST Patient has POLST: No PD ED PE EXPANDED - General General: Alert, Other (obese) - Cardiac Cardiac: Regular Rate, Radial strong equal, Pedal strong equal, Cap refill < 2 sec - Respiratory Respiratory: Clear to ausultation samantha. No: Distress, Labored - Abdomen Abdomen: Normal Bowel sounds. No: Tender to palpation (unable to elicit any significant abdominal tenderness though exam is limited by body habitus. negative murphys) - Derm Derm: Normal color, Warm and dry - Extremities Extremities: Normal. No: Deformity, Tenderness - Neuro Neuro: Alert and Oriented X 3, CNII-XII intact - GCS Eye Opening: Spontaneous Motor: Obeys Commands Verbal: Oriented Total: 15 - Psych Psych: Depressed. No: Suicidal, Homicidal Results - Vitals Vitals: Vital Signs - 24 hr 04/02/21 04/02/21 17:12 19:41 Temperature 36.1 C L Heart Rate 113 H 89 Respiratory 20 16 Rate Blood Pressure 145/84 H 134/69 H O2 Saturation 97 95 Oxygen O2 Source Room air - Labs Labs: Laboratory Tests 04/02/21 04/02/21 04/02/21 16:45 17:29 17:29 WBC 13.1 H RBC 5.39 Hgb 15.1 Hct 45.8 MCV 85.0 MCH 28.0 MCHC 33.0 RDW 13.7 Plt Count 219 MPV 11.2 H Neut # (Auto) 7.1 H Lymph # (Auto) 4.9 H [place] # (Auto) 0.7 Eos # (Auto) 0.2 Baso # (Auto) 0.1 Absolute Nucleated RBC 0.00 Nucleated RBC % 0.0 Sodium 137 Potassium 3.2 L Chloride 103 Carbon Dioxide 24 Anion Gap 10.0 BUN 9 Creatinine 0.8 Estimated GFR (MDRD) 79 L Glucose 112 H Calcium 9.1 Total Bilirubin 0.7 AST 18 ALT 21 Alkaline Phosphatase 85 Total Protein 7.4 Albumin 3.8 Globulin 3.6 Albumin/Globulin Ratio 1.1 Lipase 31 TSH Serum HCG, Qual Urine Color YELLOW Urine Clarity HAZY Urine pH 5.5 Ur Specific Industry 1.015 Urine Protein NEGATIVE Urine Glucose (UA) NEGATIVE Urine Ketones TRACE Urine Occult Blood MODERATE H Urine Nitrite NEGATIVE Urine Bilirubin NEGATIVE Urine Urobilinogen 0.2 (NORMAL) Ur Leukocyte Esterase NEGATIVE Urine RBC 6-10 H Urine WBC 0-3 Ur Squamous Epith Cells MANY Squamous H Urine Bacteria Moderate H Ur Microscopic Review INDICATED Urine Culture Comments NOT INDICATED 04/02/21 04/02/21 17:29 17:29 WBC RBC Hgb Hct MCV MCH MCHC RDW Plt Count MPV Neut # (Auto) Lymph # (Auto) [place] # (Auto) Eos # (Auto) Baso # (Auto) Absolute Nucleated RBC Nucleated RBC % Sodium Potassium Chloride Carbon Dioxide Anion Gap BUN Creatinine Estimated GFR (MDRD) Glucose Calcium Total Bilirubin AST ALT Alkaline Phosphatase Total Protein Albumin Globulin Albumin/Globulin Ratio Lipase TSH 1.50 Serum HCG, Qual NEGATIVE Urine Color Urine Clarity Urine pH Ur Specific Industry Urine Protein Urine Glucose (UA) Urine Ketones Urine Occult Blood Urine Nitrite Urine Bilirubin Urine Urobilinogen Ur Leukocyte Esterase Urine RBC Urine WBC Ur Squamous Epith Cells Urine Bacteria Ur Microscopic Review Urine Culture Comments - Rads (name of study) CT abd Radiology: Final report received (No acute disease process. Appendix is normal. No dilated loops of bowel. No free fluid or air. Cholelithiasis without evidence of cholecystitis or biliary obstruction) abd US Radiology: Final report received (Multiple gallstones. Gallbladder wall 3.1 mm. CBD within normal limits.) PD MEDICAL DECISION MAKING - ED course Complexity details: reviewed old records, reviewed results, re-evaluated patient, d/w patient ED course: 41-year-old female presents the emergency department with uncontrolled nausea vomiting as well as dry heaving over the last week. Seen recently for similar and felt that the symptoms were related to a change in her anxiety medicines from citalopram to Lexapro. Patient reports that for much the last week she has had some generalized anorexia. However she did not have any fevers or focal abdominal pain. However it should be noted that given her BC her abdominal exam was limited by body habitus. Screening labs did show a modest leukocytosis with white count of 13,000. The rest of her CBC as well as screening chemistry was unremarkable. I was able to achieve symptom control with a liter of IV fluids as well as Zofran. Patient is now tolerating sips of clear liquids. However given 1 week of uncontrolled vomiting a CT of the abdomen was completed and it did show multiple gallstones without any secondary findings of acute cholecystitis. At that point an abdominal ultrasound was completed. It did show gallbladder wall of about 3.1 mm. However no CBD dilation. Patient is not tender in the right upper quadrant. Doubtful that she has acute cholecystitis at this time. The CT imaging and ultrasound imaging findings were discussed with the patient. She we discussed that she would need referral to a surgeon for further evaluation of the gallstones. Limited prescription for Zofran was sent to the pharmacy with emergent return precautions discussed. Departure - Departure Disposition: Home, Self Care Clinical Impression: Cholelithiasis Qualifiers: Cholelithiasis location: gallbladder Cholecystitis presence: without cholecystitis Biliary obstruction: without biliary obstruction Qualified Code(s): K80.20 - Calculus of gallbladder without cholecystitis without obstruction Condition: Stable Record reviewed to determine appropriate education?: Yes Instructions: Gallstones Follow-Up: Shellie Crouch ARNP [Primary Care Provider] - Prescriptions: Ondansetron Odt [Zofran] 4 mg TL Q6H PRN #10 tablet PRN Reason: Nausea / Vomiting Comments: Tasha you were seen today in the emergency department for uncontrolled nausea and vomiting this week. This also follows worsening anxiety with a change in your recent medications. We did do a CT of your abdomen and it shows multiple gallstones within your gallbladder. However there were no signs to suggest gallbladder inflammation or the need to go to the operating room tonight. In general those that have gallstones we advised to eat a low-fat diet. Small frequent meals and snacks as opposed to larger meals can be helpful. We did give you IV fluids as well as Zofran here in the emergency department with good improvement in your nausea. I would like you to drink clear liquids for the next 24 hours. Then slowly advance your diet with bananas rice applesauce and toast. I have sent a prescription for some Zofran to the [facility]. It is important that you discuss this ED visit with your primary care provider. You should obtain referral to a surgeon for further evaluation of this gallbladder and to determine if it needs to be removed surgically. If at any point you develop sudden severe abdominal pain, have fevers or uncontrolled vomiting then please return immediately to the ER for a second evaluation. I do encourage you to discuss your anxiety with your primary care provider. This may improve over time as you adjust to the Lexapro. If you ever feel unsafe or have thoughts of self-harm then please return to the ER or call 911.
[2021-04-02 17:47] LABS: ALBUMIN 3.8 g/dL (3.2-5.5); ALBUMIN/GLOBULIN RATIO 1.1 (1.0-2.2); BILIRUBIN,TOTAL 0.7 mg/dL (0.2-1.0); CALCIUM 9.1 mg/dL (8.5-10.3); CREATININE 0.8 mg/dL (0.4-1.0); POTASSIUM 3.2 mmol/L (3.5-5.0); TOTAL PROTEIN 7.4 g/dL (6.7-8.2)
[2021-04-02] MEDS ORDERED: IOPAMIDOL-300 100 ML VIAL ONE (17:48)
[2021-04-02 18:14] LABS: HCG,QUALITATIVE BLOOD NEGATIVE
[2021-04-02] MEDS ORDERED: IOPAMIDOL-300 100 ML VIAL IVP ONE (18:41)
--- NOTE | 2021-04-02 18:50 | CT Report ---
PROCEDURE: Abdomen/Pelvis W INDICATIONS: n/v X 1 week CONTRAST: IV CONTRAST: Isovue 300 ml: 100 PO CONTRAST: *NO PO CONTRAST TECHNIQUE: After the administration of IV contrast, 5 mm thick sections acquired from the diaphragms to the symp hysis. 5 mm thick coronal and sagittal reformats were acquired. For radiation dose reduction, the f ollowing was used: automated exposure control, adjustment of mA and/or kV according to patient size. COMPARISON: 05/27/2013.. FINDINGS: Image quality: Excellent. ABDOMEN: Lung bases: Lung bases are clear. Heart size is normal. Solid organs: Liver and spleen are normal in size and enhancement. Gallbladder contains multiple ga llstones. Biliary system is non dilated. Pancreas enhances normally. No adrenal nodules. Kidneys d emonstrate normal size and enhancement, without hydronephrosis. Peritoneum and bowel: Bowel loops demonstrate normal wall thickness and caliber. No free fluid or a ir. Appendix is normal. Nodes and vessels: No retroperitoneal or mesenteric adenopathy by size criteria. Aorta and inferior vena cava are normal in size. Miscellaneous: Small right perimedian infraumbilical fat-containing ventral hernia. PELVIS: Genitourinary: Bladder wall thickness is normal. Miscellaneous: No inguinal adenopathy. Small bilateral fat-containing inguinal hernias. Bones: No suspicious bony lesions. No vertebral body compression fractures. IMPRESSION: 1. No acute disease process. 2. Appendix is normal. 3. No dilated loops of bowel. 3. No free fluid or air. 4. Cholelithiasis without evidence of cholecystitis or biliary obstruction. Reviewed by: Katie Chavez MD, PhD on 04/02/2021 6:49 PM PST Approved by: Katie Chavez MD, PhD on 04/02/2021 6:49 PM PST Station ID: [id number]
[2021-04-02 18:52] LABS: GLUCOSE, URINE (UA) NEGATIVE (NEGATIVE); KETONES,URINE (UA) TRACE mg/dL (NEGATIVE); LEUKOCYTE ESTERASE, URINE NEGATIVE (NEGATIVE); NITRITE,URINE NEGATIVE (NEGATIVE); OCCULT BLOOD,URINE MODERATE (NEGATIVE); PH,URINE 5.5 PH (5.0-7.5); PROTEIN,URINE NEGATIVE (NEGATIVE); UROBILINOGEN,URINE 0.2 (NORMAL) E.U./dL (NORMAL)
[2021-04-02 18:56] LABS: BILIRUBIN,URINE NEGATIVE (NEGATIVE); CLARITY,URINE HAZY (CLEAR); ICTOTEST,URINE NEGATIVE
[2021-04-02 19:17] LABS: BACTERIA,URINE Moderate /HPF (None Seen); SQUAMOUS EPITHELIAL CELL,UR MANY Squamous (<= Few); WBC,URINE 0-3 /HPF (0-5)
[2021-04-02 21:15] VITALS: BP 135/64
--- NOTE | 2021-04-02 21:21 | Ultrasound Report ---
PROCEDURE: Abdomen Limited INDICATIONS: n/v/; gall stones TECHNIQUE: Real-time focused scanning was performed of the abdomen, with image documentation. COMPARISON: FINDINGS: Liver is normal in size. Liver is diffusely echogenic. No focal hepatic mass lesions. Multiple gallstones noted. Gallbladder wall slightly thickened to 3.1 mm. No pericholecystic fluid. N o sonographic Rodriguez sign. Biliary tree is nondilated. Common bile measures 3.9 mm. Pancreas is sonographically normal. Right kidney measures 11.8 cm long axis. Right kidney is sonographically normal. IMPRESSION: 1. Cholelithiasis with slight gallbladder wall thickening. Findings suspicious for acute cholecystiti s. 2. No biliary obstruction. 3. Echogenic liver. Finding typically represents fatty infiltration, however the finding is nonspecif ic and other etiologies including hepatic cirrhosis can produce a similar appearance. Recommend corre lation with clinical and laboratory data. Reviewed by: Katie Chavez MD, PhD on 04/02/2021 9:20 PM PST Approved by: Katie Chavez MD, PhD on 04/02/2021 9:20 PM PST Station ID: [id number]
== END 2021-04-02 21:16 | disposition home or self-care (01) ==
LOC: ED 17:08
DX: K80.20 Calculus of gallbladder without cholecystitis without obstruction (principal); I10 Essential (primary) hypertension; F17.200 Nicotine dependence, unspecified, uncomplicated
CPT/HCPCS: 36415; 74177; 76705; 80053; 81001; 83690; 84443; 84703; 85025; 96361; 96374; 99283; 99284; Q9967; 81003; 87086

== ENCOUNTER 2022-01-08 17:04 | Emergency (ER) | payer MEDICAID ==
[2022-01-08] MEDS ORDERED: HYDROmorphone 1 MG/ML CARPUJECT IVP STA (17:21)
[2022-01-08] MEDS ORDERED: KETOROLAC 15 MG/ML VIAL IVP STA (17:21)
--- NOTE | 2022-01-08 17:21 | ED Physician Documentation ---
PD HPI ABD PAIN - Stated complaint Stated Complaint: RIB PAIN,SOA - Chief complaint Chief Complaint: Abd Pain - History obtained from History obtained from: Patient - Additional information Additional information: 41-year-old woman was diagnosed with incidental gallstones by CT last year. Since 4 AM she has had severe epigastric pain today. Its been going on for 13 hours now. It radiates to the back. It is not associate with nausea, fevers, or changes in bowel movements. She is never had this before. Review of Systems Ten Systems: 10 systems reviewed and negative Constitutional: denies: Fever, Chills Cardiac: denies: Chest pain / pressure, Palpitations Respiratory: denies: Dyspnea, Cough PD PAST MEDICAL HISTORY - Past Medical History Cardiovascular: Hypertension, High cholesterol Respiratory: None Neuro: None Endocrine/Autoimmune: None GI: None QUALITY CONTROL INSPECTOR: None : None HEENT: None Psych: Depression, Anxiety, Panic attacks Musculoskeletal: Osteoarthritis Derm: Psoriasis - Past Surgical History Past Surgical History: Yes General: Other /QUALITY CONTROL INSPECTOR: section - Present Medications Home Medications: Ambulatory Orders Medication Instructions Recorded Confirmed Buspirone HCl 30 mg PO DAILY 05/27/13 04/02/21 Escitalopram [Lexapro] 10 mg PO DAILY #30 tablet 03/26/21 04/02/21 Propranolol [Inderal] 10 mg PO DAILY 03/26/21 04/02/21 Ondansetron Odt [Zofran] 4 mg TL Q6H PRN #10 tablet 04/02/21 - Allergies Allergies/Adverse Reactions: Allergies Allergy/AdvReac Type Severity Reaction Status Date / Time No Known Drug Allergies Allergy Verified 01/08/22 17:08 - Social History Does the pt smoke?: Yes Smoking Status: Current every day smoker Does the pt drink ETOH?: Yes Does the pt have substance abuse?: No - Immunizations Immunizations are current?: Yes - POLST Patient has POLST: No PD ED PE NORMAL - Vitals Vital signs reviewed: Yes - General General: Alert and oriented X 3, Other (She appears uncomfortable and in pain) - HEENT HEENT: PERRL, EOMI - Neck Neck: Supple, no meningeal sign, No bony TTP - Cardiac Cardiac: RRR, No murmur - Respiratory Respiratory: No respiratory distress, Clear bilaterally - Abdomen Abdomen: Other (Focally tender in the right upper quadrant and epigastrium with positive Rodriguez sign, no diffuse tenderness.) - Back Back: No CVA TTP - Derm Derm: Normal color, Warm and dry - Extremities Extremities: No edema, No calf tenderness / cord - Neuro Neuro: Alert and oriented X 3, Normal speech Results - Vitals Vitals: Vital Signs - 24 hr 01/08/22 01/08/22 01/08/22 17:10 17:43 19:38 Temperature 36.3 C L Heart Rate 82 82 77 Respiratory 20 18 16 Rate Blood Pressure 144/80 H 155/78 H 138/51 H O2 Saturation 99 98 100 01/08/22 21:11 Temperature Heart Rate 78 Respiratory 18 Rate Blood Pressure 158/83 H O2 Saturation 95 Oxygen O2 Source Room air - Labs Labs: Laboratory Tests 01/08/22 01/08/22 01/08/22 17:33 17:33 20:00 WBC 8.7 RBC 5.01 Hgb 14.0 Hct 42.4 MCV 84.6 MCH 27.9 MCHC 33.0 RDW 13.5 Plt Count 214 MPV 10.8 Neut # (Auto) 6.0 Lymph # (Auto) 1.9 [place] # (Auto) 0.7 Eos # (Auto) 0.0 Baso # (Auto) 0.0 Absolute Nucleated RBC 0.00 Nucleated RBC % 0.0 Sodium 140 Potassium 3.5 Chloride 104 Carbon Dioxide 27 Anion Gap 9.0 BUN 11 Creatinine 0.7 Estimated GFR (MDRD) 92 Glucose 107 H Calcium 9.4 Total Bilirubin 2.6 H AST 648 H ALT 617 H Alkaline Phosphatase 148 H Total Protein 7.1 Albumin 3.5 Globulin 3.6 Albumin/Globulin Ratio 1.0 Lipase 34 Urine Color ORANGE Urine Clarity CLOUDY Urine pH 7.0 Ur Specific [place] 1.025 Urine Protein 30 H Urine Glucose (UA) 100 H Urine Ketones TRACE Urine Occult Blood LARGE H Urine Nitrite POSITIVE H Urine Bilirubin NEGATIVE Urine Urobilinogen 1 (NORMAL) Ur Leukocyte Esterase NEGATIVE Urine RBC TNTC H Urine WBC 0-3 Ur Squamous Epith Cells FEW Squamous Urine Bacteria Few Ur Microscopic Review INDICATED Urine Culture Comments INDICATED Urine HCG, Qual NEGATIVE Nasal Adenovirus (PCR) Nasal B. parapertussis DNA (PCR) Nasal Coronavir 229E PCR Nasal Coronavir HKU1 PCR Nasal Coronavir NL63 PCR Nasal Coronavir OC43 PCR Nasal Enterovir/Rhinovir PCR Nasal Influenza B PCR Nasal Influenza A PCR Nasal Parainfluen 1 PCR Nasal Parainfluen 2 PCR Nasal Parainfluen 3 PCR Nasal Parainfluen 4 PCR Nasal RSV (PCR) Nasal B.pertussis DNA PCR Nasal C.pneumoniae (PCR) Misael Human Metapneumo PCR Nasal M.pneumoniae (PCR) Nasal SARS-CoV-2 (PCR) 01/08/22 20:02 WBC RBC Hgb Hct MCV MCH MCHC RDW Plt Count MPV Neut # (Auto) Lymph # (Auto) [place] # (Auto) Eos # (Auto) Baso # (Auto) Absolute Nucleated RBC Nucleated RBC % Sodium Potassium Chloride Carbon Dioxide Anion Gap BUN Creatinine Estimated GFR (MDRD) Glucose Calcium Total Bilirubin AST ALT Alkaline Phosphatase Total Protein Albumin Globulin Albumin/Globulin Ratio Lipase Urine Color Urine Clarity Urine pH Ur Specific [place] Urine Protein Urine Glucose (UA) Urine Ketones Urine Occult Blood Urine Nitrite Urine Bilirubin Urine Urobilinogen Ur Leukocyte Esterase Urine RBC Urine WBC Ur Squamous Epith Cells Urine Bacteria Ur Microscopic Review Urine Culture Comments Urine HCG, Qual Nasal Adenovirus (PCR) NOT DETECTED Nasal B. parapertussis DNA (PCR) NOT DETECTED Nasal Coronavir 229E PCR NOT DETECTED Nasal Coronavir HKU1 PCR NOT DETECTED Nasal Coronavir NL63 PCR NOT DETECTED Nasal Coronavir OC43 PCR NOT DETECTED Nasal Enterovir/Rhinovir PCR NOT DETECTED Nasal Influenza B PCR NOT DETECTED Nasal Influenza A PCR NOT DETECTED Nasal Parainfluen 1 PCR NOT DETECTED Nasal Parainfluen 2 PCR NOT DETECTED Nasal Parainfluen 3 PCR NOT DETECTED Nasal Parainfluen 4 PCR NOT DETECTED Nasal RSV (PCR) NOT DETECTED Nasal B.pertussis DNA PCR NOT DETECTED Nasal C.pneumoniae (PCR) NOT DETECTED Misael Human Metapneumo PCR NOT DETECTED Nasal M.pneumoniae (PCR) NOT DETECTED Nasal SARS-CoV-2 (PCR) NOT DETECTED PD MEDICAL DECISION MAKING - ED course Complexity details: re-evaluated patient ED course: 41-year-old woman presents with epigastric pain and right upper quadrant tenderness in the setting of known previously diagnosed incidental gallstones. Subsequent imaging and labs suggest probably choledocholithiasis with obstruction as the cause of her pain. There is no infection apparent. Spoke with the health unit tender around 6:05 PM, there is currently bed shortage in [facility] a tertiary facility capable of further work-up such as ERCP but she will call around and get her on wait lists. She is started on scheduled Unasyn given the high risk of development of ascending cholangitis. Multiple facilities called for potential transfer for and subsequently the [facility] was also called but they feel pessimistic that the patient would be able to be placed tonight. As such I wrote for serial labs and an MRCP tomorrow. Care to overnight ED physician at shift change. Departure - Departure Disposition: 02 Transfer Acute Care Hosp Clinical Impression: Choledocholithiasis, Biliary obstruction Condition: Stable
[2022-01-08 17:38] LABS: BASOPHILS % (AUTO) 0.5 %; EOSINOPHILS % (AUTO) 0.1 %; HCT - HEMATOCRIT 42.4 % (37.0-47.0); LYMPHOCYTES # (AUTO) 1.9 10^3/uL (1.5-3.5); LYMPHOCYTES % (AUTO) 22.4 %; MEAN CORPUSCULAR HEMOGLOBIN 27.9 pg (27.0-31.0); MEAN CORPUSCULAR VOLUME 84.6 fL (81.0-99.0); MEAN PLATELET VOLUME 10.8 fL (7.9-10.8); MONOCYTES # (AUTO) 0.7 10^3/uL (0.0-1.0); MONOCYTES % (AUTO) 7.5 %; NEUTROPHILS % (AUTO) 69.2 %; PLT - PLATELET COUNT 214 10^3/uL (130-450); RED BLOOD COUNT 5.01 10^6/uL (4.20-5.40); RED CELL DISTRIBUTION WIDTH 13.5 % (12.0-15.0); WHITE BLOOD COUNT 8.7 x10^3/uL (4.8-10.8)
[2022-01-08 17:55] LABS: ALBUMIN 3.5 g/dL (3.2-5.5); BILIRUBIN,TOTAL 2.6 mg/dL (0.2-1.0); CALCIUM 9.4 mg/dL (8.5-10.3); CREATININE 0.7 mg/dL (0.4-1.0); POTASSIUM 3.5 mmol/L (3.5-5.0); TOTAL PROTEIN 7.1 g/dL (6.7-8.2)
[2022-01-08] MEDS ORDERED: D5.45NS W/20 MEQ KCL 1,000 ML IV STA (18:16)
--- NOTE | 2022-01-08 18:30 | Ultrasound Report ---
PROCEDURE: Abdomen Limited INDICATIONS: ruq pain TECHNIQUE: Real-time scanning was performed of the abdominal and retroperitoneal organs, with image documentatio n. COMPARISON: None. FINDINGS: Liver: Liver is enlarged measuring 21.4 cm with steatosis. Gallbladder: Multiple mobile foci of increased echogenicity are identified. Wall thickness is normal measuring 1.8 mm. Biliary ducts: Intrahepatic bile ducts are non-dilated. Extrahepatic bile duct caliber measures 7.2 mm. Normal is 6-7 mm or less in diameter, or 10 mm or less post-cholecystectomy. Pancreas: Visualized portions of the pancreas are sonographically normal. Kidneys: Right kidney measures 11.6 cm long. No hydronephrosis or nephrolithiasis. No solid masses . Aorta: Visualized aorta is normal in caliber at less than 3 cm. Iliacs: Proximal common iliac arteries are normal in caliber at less than 2.5 cm. IVC: Intrahepatic inferior vena cava is patent. Miscellaneous: No free abdominal fluid. IMPRESSION: Cholelithiasis without imaging evidence of cholecystitis. Reviewed by: Peri Lambert MD on 01/08/2022 6:28 PM PDT Approved by: Peri Lambert MD on 01/08/2022 6:28 PM PDT Station ID: [id number]
[2022-01-08 20:16] LABS: BILIRUBIN,URINE NEGATIVE (NEGATIVE); GLUCOSE, URINE (UA) 100 mg/dL (NEGATIVE); KETONES,URINE (UA) TRACE mg/dL (NEGATIVE); LEUKOCYTE ESTERASE, URINE NEGATIVE (NEGATIVE); NITRITE,URINE POSITIVE (NEGATIVE); OCCULT BLOOD,URINE LARGE (NEGATIVE); PROTEIN,URINE 30 mg/dL (NEGATIVE); UROBILINOGEN,URINE 1 (NORMAL) E.U./dL (NORMAL)
[2022-01-08 20:18] LABS: CLARITY,URINE CLOUDY (CLEAR); HCG UR QUAL NEGATIVE
[2022-01-08] MEDS: AMPICILLIN/SULBACTAM 3 GM in SODIUM CHLORIDE 0.9% MINIBAG 100 ML IV SCH (20:21)
[2022-01-08 20:45] LABS: BACTERIA,URINE Few /HPF (None Seen); RBC,URINE TNTC /HPF (0-5); SQUAMOUS EPITHELIAL CELL,UR FEW Squamous (<= Few); WBC,URINE 0-3 /HPF (0-5)
[2022-01-08 21:11] LABS: B. PARAPERTUSSIS- RESP PCR PAN NOT DETECTED; B. PERTUSSIS- RESP PCR PANEL NOT DETECTED; C. PNEUMONIAE- RESP PCR PANEL NOT DETECTED; CORONAVIRUS 229E-RESP PCR NOT DETECTED; CORONAVIRUS HKU1-RESP PCR NOT DETECTED; CORONAVIRUS NL63-RESP PCR NOT DETECTED; CORONAVIRUS OC43-RESP PCR NOT DETECTED; HUMAN METAPNEUMOVIRUS NOT DETECTED; INFLUENZA A- RESP PCR PANEL NOT DETECTED; INFLUENZA B - RESP PCR PANEL NOT DETECTED; M. PNEUMONIAE- RESP PCR PANEL NOT DETECTED; PARAINFLUENZA VIRUS 1 NOT DETECTED; PARAINFLUENZA VIRUS 2 NOT DETECTED; PARAINFLUENZA VIRUS 3 NOT DETECTED; PARAINFLUENZA VIRUS 4 NOT DETECTED; RHINOVIRUS/ENTEROVIRUS NOT DETECTED; RSV- RESP PCR PANEL NOT DETECTED; SARS-CoV-2 -RESP PCR PANEL NOT DETECTED
[2022-01-08] MEDS ORDERED: ESCITALOPRAM 10 MG TABLET PO SCH (23:00)
[2022-01-08] MEDS ORDERED: busPIRone 5 MG TABLET PO SCH (23:00)
[2022-01-09] MEDS: AMPICILLIN/SULBACTAM 3 GM in SODIUM CHLORIDE 0.9% MINIBAG 100 ML IV SCH ×3 (01:16→13:29)
[2022-01-09 06:14] LABS: BASOPHILS % (AUTO) 0.4 %; EOSINOPHILS % (AUTO) 0.4 %; HCT - HEMATOCRIT 41.9 % (37.0-47.0); HGB - HEMOGLOBIN 13.6 g/dL (12.0-16.0); LYMPHOCYTES # (AUTO) 1.8 10^3/uL (1.5-3.5); LYMPHOCYTES % (AUTO) 25.8 %; MEAN CORPUSCULAR HEMOGLOBIN 27.6 pg (27.0-31.0); MEAN CORPUSCULAR HGB CONC 32.5 g/dL (32.0-36.0); MEAN CORPUSCULAR VOLUME 85.2 fL (81.0-99.0); MEAN PLATELET VOLUME 11.1 fL (7.9-10.8); MONOCYTES # (AUTO) 0.5 10^3/uL (0.0-1.0); MONOCYTES % (AUTO) 7.5 %; NEUTROPHILS # (AUTO) 4.5 10^3/uL (1.5-6.6); NEUTROPHILS % (AUTO) 65.8 %; PLT - PLATELET COUNT 186 10^3/uL (130-450); RED BLOOD COUNT 4.92 10^6/uL (4.20-5.40); RED CELL DISTRIBUTION WIDTH 13.6 % (12.0-15.0); WHITE BLOOD COUNT 6.8 x10^3/uL (4.8-10.8)
[2022-01-09 06:27] LABS: ALBUMIN 3.3 g/dL (3.2-5.5); BILIRUBIN,TOTAL 5.1 mg/dL (0.2-1.0); CALCIUM 8.7 mg/dL (8.5-10.3); CREATININE 0.7 mg/dL (0.4-1.0); POTASSIUM 3.6 mmol/L (3.5-5.0); TOTAL PROTEIN 6.6 g/dL (6.7-8.2)
[2022-01-09] MEDS ORDERED: GADOBUTROL 15 MMOL/15 ML VIAL ONE (07:36)
[2022-01-09] MEDS ORDERED: D5.45NS W/20 MEQ KCL 1,000 ML IV STA (09:47)
--- NOTE | 2022-01-09 09:54 | ED Physician Documentation ---
ED Addendum - Addendum Addendum: 01/09/22 09:05 Patient is boarding in the emergency department, awaiting transfer to facility with GI and ERCP capabilities. Awaiting MRCP here this morning. Labs with increased bilirubin. Patient asking to speak to MD with many questions. I updated patient and answered her questions regarding transfer process. 01/09/22 13:48Patient has no tenderness on exam. States that she has had no pain since yesterday. Repeat abdominal exam is benign with deep palpation of the right upper quadrant. Her MRCP does not show ductal dilatation. Repeat CMP ordered.Plan to discuss with general surgery after results of CMP. MRCP: IMPRESSION: 1. No biliary or pancreatic ductal dilatation. 2. Multiple moderate-sized gallstones. 3. Hepatic steatosis. No suspicious enhancement. 01/09/22 14:06 Dr. Garnica in OR. She will call back once she is done. 01/09/22 16:04 D/W Dr. Garnica. Patient likely passed a stone. If patient is able to tolerate a p.o. challenge then she is able to be discharged home. Recommends a low-fat diet. Discussed these recommendations with the patient who is very happy to hear that she may be able to go home today. Patient given food and juice. 01/09/22 16:24 Patient able to tolerate crackers and Juice without difficulty. She is eager for discharge home. She is aware of need for low-fat diet and follow-up with her surgeon to have her gallbladder removed. She is advised on strict return precautions. Departure - Departure Disposition: 01 Home, Self Care Clinical Impression: Choledocholithiasis, Biliary obstruction Condition: Stable Instructions: ED Diet Low Fat, ED Gallstone W Biliary Colic Follow-Up: Felton Gunn MD [Physician No Access] - Comments: You were evaluated for abdominal pain and found to have gallstones and concerns for a stone in your bile duct causing a blockage.After further testing and observation it appears that the stone has passed and your blockage is improving. I have spoken to her general surgeon on-call and she recommends a strict low-fat diet And follow-up as an outpatient to have your gallbladder removed. If you have any recurrence of your pain or any new symptoms please return to the emergency department. Discharge Date/Time: 01/09/22 16:37
[2022-01-09] MEDS ORDERED: GADOBUTROL 15 MMOL/15 ML VIAL IVP ONE (12:41)
--- NOTE | 2022-01-09 13:03 | MRI Report ---
PROCEDURE: MRCP W/WO INDICATIONS: RUQ with obstruction, ?choledocholithiasis CONTRAST: IV CONTRAST: Gadavist ml: 11.8 TECHNIQUE: Coronal ultra fast SE through the abdomen, axial 2-D spoiled GE in- and [id number], and breath-hold T2 FSE with fat saturation through the biliary system and pancreas. Oblique coronal and axial thin- slice ultra fast SE, radial thick-slab ultra fast SE centered on the extrahepatic bile ducts. COMPARISON: Abdominal ultrasound 01/08/2022. FINDINGS: Image quality: Good. Pancreas and biliary system: Intra- and extra-hepatic biliary ducts are non dilated. Pancreas is no rmal in morphology, without adjacent soft tissue edema. Pancreatic duct is normal in caliber, withou t developmental anomalies. Gallbladder demonstrates multiple gallstones (approximately 9). A larger stone measuring 1.2 cm. No pericholecystic fluid. Other solid organs: Liver is prominent in size. Hepatic steatosis. No splenomegaly. No adrenal nodul es. Both kidneys are normal in size, without hydronephrosis. Nodes and vessels: No retroperitoneal or mesenteric adenopathy by size criteria. Aorta and inferior vena cava are normal in size. Bowel and peritoneum: Unenhanced bowel loops are normal in caliber. No free fluid. Lung bases: No basal pleural effusions. Heart size is normal. Small hiatal hernia. Bones and soft tissues: No ventral hernias. Bone marrow is of normal overall signal. IMPRESSION: 1. No biliary or pancreatic ductal dilatation. 2. Multiple moderate-sized gallstones. 3. Hepatic steatosis. No suspicious enhancement. Reviewed by: Rolan Lockett MD on 01/09/2022 1:02 PM PDT Approved by: Rolan Lockett MD on 01/09/2022 1:02 PM PDT Station ID: [id number]
[2022-01-09 14:03] LABS: ALBUMIN 3.3 g/dL (3.2-5.5); BILIRUBIN,TOTAL 4.4 mg/dL (0.2-1.0); CALCIUM 8.5 mg/dL (8.5-10.3); CREATININE 0.7 mg/dL (0.4-1.0); POTASSIUM 3.6 mmol/L (3.5-5.0); TOTAL PROTEIN 6.5 g/dL (6.7-8.2)
[2022-01-09 16:33] VITALS: BP 113/80
--- NOTE | 2022-01-10 14:06 | ED Physician Documentation ---
ED Addendum - Addendum Addendum: 01/10/22 14:06 Urine culture reviewed, she had no urinary symptoms so this likely treatment represents asymptomatic bacteriuria and further treatment is not necessary.
== END 2022-01-09 16:37 | disposition home or self-care (01) ==
LOC: ED 17:04
DX: K80.51 Calculus of bile duct without cholangitis or cholecystitis with obstruction (principal); F17.200 Nicotine dependence, unspecified, uncomplicated
CPT/HCPCS: 36415; 74183; 76705; 80053; 81001; 81025; 83690; 85025; 87077; 87086; 87633; 96365; 96366; 96375; 99284; A9270; A9585; J1170; 81003

== ENCOUNTER 2023-01-19 16:48 | Outpatient (CLI) | payer MEDICAID ==
--- NOTE | 2023-01-19 20:55 | Ultrasound Report ---
PROCEDURE: Pelvic w/Transvaginal INDICATIONS: HEAVY MENSTRATION TECHNIQUE: Real-time scanning was performed of the pelvic organs, with image documentation. Additional endovagi nal scanning was necessary due to incomplete visualization of the adnexal and endometrial structures by transabdominal scanning. COMPARISON: CT abdomen and pelvis 04/02/2021 FINDINGS: Uterus: Uterus is anteverted and normal in size at 9.1 x 5.1 x 6.9 cm. The uterine contour is sligh tly globular but there are no discrete exophytic masses. The myometrium is mildly heterogeneous but t here are no discrete myometrial masses. There is appropriate vascular flow in the uterus. The endome trium measures 7 mm in combined thickness. The cervix appears normal. Ovaries: The right ovary measures 3.8 x 1.6 x 3.5 cm, with a calculated ovarian volume of 11.3 cc. The left ovary measures 3.2 x 2.1 x 3.4 cm, with a calculated ovarian volume of 11.6 cc. The ovaries have a normal sonographic appearance. Less than 12 follicles can be seen in each ovary. No adnexal masses are seen. No cystic lesions measuring greater than 3 cm. Other: No pathologic free abdominal or pelvic fluid. IMPRESSION: 1. Mildly heterogeneous myometrium without discrete mass. This may indicate adenomyosis and if this i s a clinical consideration, MR imaging is recommended for improved detail. 2. Normal endometrial thickness and appearance. Reviewed by: Gissel Cortes MD on 01/19/2023 8:54 PM PDT Approved by: Gissel Cortes MD on 01/19/2023 8:54 PM PDT Station ID: [id number]
== END 2023-01-19 16:49 | disposition home or self-care (01) ==
LOC: DI 16:48
PROVIDERS: ATTEND Internal Medicine
DX: N92.0 Excessive and frequent menstruation with regular cycle (principal)